=== PATIENT | female | born 1950 | race Caucasian/White ===

== ENCOUNTER 2019-01-02 04:56 | Inpatient (IN) ==
[2018-12-26 12:51] LABS: Basophils # (Auto) 0 K/mcL (0.0-0.3); Eosinophils # (Auto) 0.2 K/mcL (0.0-0.7); Eosinophils % (Auto) 3.6 % (0.0-7.0); Granulocytes % (Auto) 65.8 % (38.0-78.0); Lymphocytes # (Auto) 1.1 K/mcL (1.5-4.8); Lymphocytes % (Auto) 21.3 % (15.5-49.0); Mean Cell Volume 90.9 fL (80.0-100.0); Mean Corpuscular HGB Conc 33.3 g/dL (31.0-36.0); Monocytes # (Auto) 0.4 K/mcL (0.1-0.9); Monocytes % (Auto) 8.3 % (1.0-12.0); Platelet Count 201 K/mcL (140-440); RBC 4.39 M/mcL (4.00-5.20); Red Cell Distribution Width 13.2 % (11.5-14.5)
[2018-12-26 12:57] LABS: Blood Urea Nitrogen 28 mg/dl (8-23)
[2018-12-26 14:21] LABS: Appearance,Urine CLEAR; Bilirubin,Urine NEG (NEG); Color,Urine YELLOW; Glucose,Urine (UA) NEGATIVE (NEG); Leukocyte Esterase,Urine NEG /uL (NEG); Protein,Urine NEG (NEG); Specific Gravity,Urine 1.012 (1.000-1.035); Urine Blood NEG mg/dL (<0.03); Urobilinogen,Urine NEG (NEG)
[2019-01-02] MEDS ORDERED: CELECOXIB 200 MG CAPSULE PO SCH (06:00)
[2019-01-02] MEDS ORDERED: 0.9 % SODIUM CHLORIDE 9 ML, KETOROLAC 30 MG, ROPIVACAINE HCL/PF 49.5 ML, EPINEPHrine 0.... IJ SCH (06:00)
[2019-01-02] MEDS ORDERED: PREGABALIN 75 MG CAPSULE PO SCH (06:00)
[2019-01-02] MEDS ORDERED: ACETAMINOPHEN 500 MG TABLET PO SCH (06:00)
[2019-01-02] MEDS ORDERED: ceFAZolin 2 GM in DEXTROSE 5% IN WATER 50 ML IV SCH (06:00)
[2019-01-02] MEDS ORDERED: oxyCODONE 10 MG TAB.ER.12H PO SCH (06:00)
[2019-01-02] MEDS ORDERED: GENTAMICIN SULFATE 800 MG/20 ML VIAL IR ONE (07:06)
[2019-01-02] MEDS ORDERED: KETAMINE 100 MG/ML ML IV ONE (07:45)
[2019-01-02] MEDS ORDERED: DEXAMETHASONE 10 MG/ML VIAL IV ONE (07:45)
[2019-01-02] MEDS ORDERED: LIDOCAINE HCL/PF 100 MG/5 ML SYRINGE IV ONE (07:45)
[2019-01-02] MEDS ORDERED: MIDAZOLAM 5 MG/5 ML VIAL IV ONE (07:45)
[2019-01-02] MEDS ORDERED: ROPIVACAINE HCL/PF 20 ML VIAL IJ ONE (07:45)
[2019-01-02] MEDS ORDERED: GLYCOPYRROLATE 0.2 MG/ML VIAL IV ONE (07:45)
[2019-01-02] MEDS ORDERED: PROPOFOL 200 MG/20 ML VIAL IV ONE (07:45)
[2019-01-02] MEDS ORDERED: PHENYLEPHRINE 10 MG/ML VIAL IV ONE (07:45)
[2019-01-02] MEDS ORDERED: ONDANSETRON 4 MG/2 ML VIAL IV ONE (07:45)
[2019-01-02] MEDS ORDERED: TRANEXAMIC ACID 1,000 MG/10 ML VIAL IV ONE (07:45)
--- NOTE | 2019-01-02 09:12 | Brief Operative Note ---
Date of procedure: 01/02/19 Pre-op diagnosis: right knee djd severe Post-op diagnosis: same Procedure: Right knee tka with robotics Grafts/Implants: Yes Anesthesia: GETA Complications Description: 01/02/19 09:11 none Surgeon: Cecil Price Controls Engineer: Enrrique Callahan Estimated blood loss (cc): 30 Tourniquet Time (Minutes): 50 Specimens Removed/Pathology: none sent Condition: stable Disposition: PACU
[2019-01-02] MEDS ORDERED: POLYETHYLENE GLYCOL 3350 17 GM PACKET PO PRN (09:13)
[2019-01-02] MEDS ORDERED: BENZOCAINE/MENTHOL 1 LOZENGE PO PRN ×2 (09:13→09:56)
[2019-01-02] MEDS ORDERED: BISACODYL 10 MG SUPP.RECT PR PRN (09:13)
[2019-01-02] MEDS ORDERED: MAGNESIUM HYDROXIDE 30 ML ORAL.SUSP PO PRN (09:13)
[2019-01-02] MEDS ORDERED: TRANEXAMIC ACID 1,000 MG/10 ML VIAL IV SCH (09:13)
[2019-01-02] MEDS ORDERED: ACETAMINOPHEN 325 MG TABLET PO PRN (09:13)
[2019-01-02] MEDS ORDERED: HYDROmorphone 2 MG/ML VIAL IV PRN (09:13)
[2019-01-02] MEDS ORDERED: ONDANSETRON 4 MG/2 ML VIAL IV PRN ×2 (09:13→09:56)
[2019-01-02] MEDS ORDERED: FLEETS ADULT ENEMA PR PRN (09:13)
--- NOTE | 2019-01-02 09:35 | Operative Note ---
DATE OF OPERATION: 01/02/2019 PREOPERATIVE DIAGNOSIS: Right knee degenerative arthritis. POSTOPERATIVE DIAGNOSIS: Right knee degenerative arthritis. PROCEDURE: Right robotic total knee arthroplasty. SURGEON: Cecil Price MD SPINNING FRAME CHANGER: Enrrique Callahan PA-C ANESTHESIA: General LMA anesthesia. COMPLICATIONS: None. IMPLANTS PLACED: A size 4 tibial baseplate, size 4 femur with a 12 mm deep dish poly with a 35 mm oval patella. DESCRIPTION OF PROCEDURE: The patient was brought to the operating room and put to sleep with general LMA anesthesia. Once asleep, the patient had the right leg sterilely prepped and draped in the usual sterile fashion. Timeout was performed confirming the operative site by initials, consent form and x-rays. Once done, a midline incision was made and two pins above and below the knee were placed. We then removed the fatty tissue from the notch, balanced the knee and registered the center of hip rotation; medial and lateral malleoli were registered and 30 points on the femur and tibia were registered. The robot was registered and then it was brought in and cut the bony cuts as templated and planned. Once these bony fragments were removed the robotic was removed and then we trialed the implants. These fit very nicely. We went from a size 9 up to a size 12 to balance the knee in full extension and flexion to make this equally balanced as preoperatively planned. We irrigated thoroughly and removed any bony spurs posteriorly as well as medially and a final balancing performed. We cemented into place the above-mentioned sizes and then we irrigated thoroughly and removed any excess cement. We kept the knee at 45 degrees until hard and then we closed the mid vastus approach after a final inspection. We closed the mid vastus approach with #1 Stratafix. The pins were removed and intra-articular pins were all accounted for. The capsule was closed with 2 #1 Stratafix. Skin was closed with 2-0 Vicryl and adhesive closure. The patient tolerated this well without complication. Tourniquet deflated at 50 minutes. RBH:shin Job ID: [id number] Doc ID: [id number] Cecil Price MD
[2019-01-02] MEDS ORDERED: METHOCARBAMOL 1,000 MG/10 ML VIAL IV PRN (09:56)
[2019-01-02] MEDS ORDERED: LACTATED RINGERS 250 ML IV PRN (09:56)
[2019-01-02] MEDS ORDERED: fentaNYL 100 MCG/2 ML VIAL IV PRN (09:56)
[2019-01-02] MEDS ORDERED: MEPERIDINE 25 MG/ML SYRINGE IV PRN (09:56)
[2019-01-02] MEDS ORDERED: NALOXONE HCL 0.4 MG/ML VIAL IV PRN (09:56)
[2019-01-02] MEDS ORDERED: IPRATROPIUM/ALBUTEROL 3 ML AMPUL.NEB NEB PRN (09:56)
[2019-01-02] MEDS ORDERED: FLUMAZENIL 0.1 MG/ML ML IV PRN (09:56)
[2019-01-02] MEDS ORDERED: LACTATED RINGERS 1,000 ML IV SCH (10:00)
--- NOTE | 2019-01-02 10:14 | XRay Report ---
CLINICAL INFORMATION: Post-Op Total Knee COMPARISON: None. FINDINGS: Total knee prostheses is anatomically aligned. No osseous abnormality. Periarticular gas and soft tissue swelling seen as expected IMPRESSION: Negative Interpreted and Authenticated by: Madi Plata 01/02/19
[2019-01-02] MEDS: 0.45 % SODIUM CHLORIDE 1,000 ML IV SCH ×2 (10:32→22:13)
[2019-01-02] MEDS: KETOROLAC 15 MG/ML VIAL IV SCH ×2 (12:58→17:57)
[2019-01-02] MEDS: 0.9 % SODIUM CHLORIDE 10 ML SYRINGE IV SCH ×2 (15:16→22:16)
[2019-01-02] MEDS: ceFAZolin 1 GM VIAL IV SCH (15:16)
[2019-01-02] MEDS ORDERED: TEMAZEPAM 15 MG CAPSULE PO PRN (21:00)
[2019-01-02] MEDS ORDERED: ATORVASTATIN 20 MG TABLET PO SCH (21:00)
[2019-01-02] MEDS ORDERED: LISINOPRIL 20 MG TABLET PO SCH (21:00)
[2019-01-02] MEDS ORDERED: CALCIUM W/VIT D3 500 MG TABLET PO SCH (21:00)
[2019-01-02] MEDS ORDERED: SENNOSIDES 1 TABLET PO SCH (21:00)
[2019-01-02] MEDS: oxyCODONE/APAP 5/325MG TABLET PO PRN (22:10)
[2019-01-02] MEDS: DOCUSATE SODIUM 100 MG CAPSULE PO SCH (22:12)
[2019-01-02] MEDS: ASPIRIN 325 MG ENTERIC COATED TABLET PO SCH (22:12)
[2019-01-03] MEDS: ceFAZolin 1 GM VIAL IV SCH (00:05)
[2019-01-03] MEDS: KETOROLAC 15 MG/ML VIAL IV SCH ×3 (00:36→13:06)
[2019-01-03] MEDS: 0.45 % SODIUM CHLORIDE 1,000 ML IV SCH (05:07)
[2019-01-03] MEDS: 0.9 % SODIUM CHLORIDE 10 ML SYRINGE IV SCH ×2 (06:11→14:41)
[2019-01-03] MEDS: oxyCODONE/APAP 5/325MG TABLET PO PRN ×2 (09:23→14:39)
[2019-01-03] MEDS: ASPIRIN 325 MG ENTERIC COATED TABLET PO SCH (09:25)
[2019-01-03] MEDS: DOCUSATE SODIUM 100 MG CAPSULE PO SCH (09:25)
[2019-01-03] MEDS ORDERED: PNEUMOCOCCAL 23-VAL P-SAC VAC 0.5 ML SYRINGE IM ONE (10:00)
--- NOTE | 2019-01-03 13:16 | Discharge Summary ---
Ortho Discharge - TKA - Patient Instructions Diet: Regular Diet Activity: activity as tolerated, weight bearing as tolerated Total Knee Protocol: For Total Knee: Start ROM RONALDO with stationary bike or rocking chair. Work on gaining full extension of knee. Posterior dislocation precautions provided. Hip abductor strengthening and gait training instructions provided. Apply Cryocuff as instructed. Dressing Care: May shower in 2 days - Follow Up Plan Follow Up Appointments: Enrrique Callahan PA-C [Physician Supervisor [facility] Department] - 01/17/19 10:40 am Disposition: Home, Self-Care Prognosis: Good Rehab Potential: Good I certify that the patient requires SNF services: No Overall status at discharge: patient is progressing back to baseline - Orders For Discharge Prescriptions: oxyCODONE/APAP [Percocet 5-325 mg] 5 - 10 mg PO Q4HP PRN #60 tab PRN Reason: Pain Level 3-6 Additional Discharge Orders: Physical Therapy at Discharge - TKA Location: None Selected Toilet Riser Discharge Order Location: None Selected Walker Location: None Selected
== END 2019-01-03 15:59 | disposition home or self-care (01) | DRG 470 ==
LOC: MEDSUR 04:56
PROVIDERS: ADMIT Orthopaedic Surgery; ATTEND Orthopaedic Surgery